=== PATIENT | female | born 1960 | race Caucasian/White ===

== ENCOUNTER 2019-01-23 06:40 | Day surgery (SDC) | payer OTHER ==
[~2019-01-23] VITALS: Ht 157.5 cm; Wt 56.8 kg
[~2019-01-23 06:40] MED LIST: ALBU8.5H8 IH; ASPI-1182 PO; BECL8.7A6 IH; CLON.5 PO; DIVA500T69 PO; METO25XL PO; MONT10TA21 PO; MULT-248 PO; OXYB5XL PO; SODIUM CHLORIDE 0.9% 1,000 ML IV ONE
[2019-01-23] MEDS ORDERED: BENZOCAINE 20% 50 MCG/SPRAY 57 GM TP ONE (06:41)
[2019-01-23] MEDS ORDERED: ALBUTEROL SULFATE 2.5 MG/0.5 ML NEB SOLUTION NEB ONE (06:41)
[2019-01-23] MEDS ORDERED: LIDOCAINE 2% 30 ML JELLY TP ONE (06:41)
[2019-01-23] MEDS ORDERED: LIDOCAINE 4% 50 ML SOLUTION TP ONE (06:41)
[2019-01-23] MEDS ORDERED: SODIUM CHLORIDE 0.9% 1,000 ML IV ONE (07:00)
[2019-01-23] MEDS ORDERED: MIDAZOLAM HCL 2 MG/2 ML VIAL ONE (07:49)
[2019-01-23] MEDS ORDERED: FentaNYL CITRATE-PF 100 MCG/2 ML VIAL ONE (07:50)
[2019-01-23] MEDS ORDERED: MethylPREDNISolone SOD SUCC 125 MG/2 ML VIAL IVP ONE (09:00)
[2019-01-23] MEDS ORDERED: MethylPREDNISolone SOD SUCC 125 MG/2 ML VIAL ONE (09:14)
[2019-01-23] MEDS ORDERED: OXYGEN THERAPY IH SCH (20:00)
== END 2019-01-23 10:35 | disposition home or self-care (01) ==
LOC: SURGERY 06:40
PROVIDERS: ATTEND Internal Medicine Critical Care Medicine
DX: R05 Cough (principal); R91.1 Solitary pulmonary nodule; J34.89 Other specified disorders of nose and nasal sinuses; J98.8 Other specified respiratory disorders; J38.4 Edema of larynx; B37.0 Candidal stomatitis; K21.9 Gastro-esophageal reflux disease without esophagitis; I10 Essential (primary) hypertension; Z79.899 Other long term (current) drug therapy
CPT/HCPCS: 31623; 31624; 71045; 87015; 87070; 87077; 87101; 87186; 87205; 87206; 87220; 88108; 88312; J2250; J2930; J3010; J7030

== ENCOUNTER → 2020-04-22 | Day surgery (SDC) | payer OTHER ==
[2020-04-18 18:17] LABS: COVID AG,FIA SOURCE NASOPHARYNGEAL
[~2020-04-22] MED LIST changes: +ASPI-1111 PO; -ASPI-1182 PO; +CLON-592 PO; -CLON.5 PO; +MONT-35 PO; -MONT10TA21 PO; +SODIUM CHLORIDE 0.9% 0 ML ONE
== END | disposition home or self-care (01) ==
LOC: SURGERY 08:30
PROVIDERS: ATTEND Internal Medicine Critical Care Medicine
DX: R05 Cough (principal); Z53.8 Procedure and treatment not carried out for other reasons
CPT/HCPCS: 87426; C9803; J7030

== ENCOUNTER 2022-04-22 18:40 | Emergency (ER) | payer OTHER ==
[~2022-04-22] VITALS: Ht 162.6 cm; Wt 56.8 kg
[~2022-04-22 18:40] MED LIST changes: -ASPI-1111 PO; +ASPI-1444 PO; +OXYB-34 PO; -OXYB5XL PO; -SODIUM CHLORIDE 0.9% 0 ML ONE; -SODIUM CHLORIDE 0.9% 1,000 ML IV ONE
[2022-04-22 18:53] VITALS: BP 169/97
[2022-04-22] MEDS ORDERED: ACETAMINOPHEN 500 MG TABLET PO ONE (19:30)
== END 2022-04-22 20:56 | disposition left against medical advice (07) ==
LOC: EMS 18:49
DX: F31.9 Bipolar disorder, unspecified (principal); F17.210 Nicotine dependence, cigarettes, uncomplicated; F11.90 Opioid use, unspecified, uncomplicated; I10 Essential (primary) hypertension; M16.11 Unilateral primary osteoarthritis, right hip; C80.1 Malignant (primary) neoplasm, unspecified; Z98.890 Other specified postprocedural states; W19.XXXA Unspecified fall, initial encounter; Y93.89 Activity, other specified; Y92.512 Supermarket, store or market as the place of occurrence of the external cause; Y99.8 Other external cause status
CPT/HCPCS: 72100; 73502; 99284